=== PATIENT | male | born 2000 | race African-American/Black ===

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

== ENCOUNTER 2018-02-26 09:46 | Emergency (ER) | payer MEDICAID | END 2018-02-26 11:10 | disposition left against medical advice (07) | LOC: ER 10:58 | DX: N23 Unspecified renal colic (principal); Z53.21 Procedure and treatment not carried out due to patient leaving prior to being seen by health care provider ==

== ENCOUNTER 2018-03-01 07:07 | Emergency (ER) | payer MEDICAID ==
[~2018-03-01] VITALS: Ht 172.7 cm; Wt 59.0 kg
[2018-03-01 07:08] VITALS: BP 136/90
== END 2018-03-01 08:11 | disposition left against medical advice (07) ==
LOC: ER 07:29
DX: Z53.21 Procedure and treatment not carried out due to patient leaving prior to being seen by health care provider (principal)

== ENCOUNTER 2019-01-23 06:16 | Emergency (ER) | payer MEDICAID ==
[~2019-01-23] VITALS: Ht 180.3 cm; Wt 64.0 kg
[2019-01-23] MEDS ORDERED: IPRATROPIUM BROMIDE (0.02%) 0.5MG/2.5ML NEB HHN STA (07:28)
[2019-01-23] MEDS ORDERED: ALBUTEROL (0.083%) 2.5MG/3ML NEB HHN STA (07:28)
[2019-01-23 08:55] VITALS: BP 122/68
== END 2019-01-23 09:05 | disposition home or self-care (01) ==
LOC: ER 06:16
DX: R06.02 Shortness of breath (principal); J45.909 Unspecified asthma, uncomplicated
CPT/HCPCS: 71045; 94640; 99283; J7611; Z7610